=== PATIENT | female | born 1990 | race Caucasian/White ===

== ENCOUNTER 2023-04-19 15:00 | Emergency (ER) | payer OTHER ==
[~2023-04-19] VITALS: Ht 147.3 cm; Wt 46.2 kg
--- OUTSIDE RECORDS SUMMARY | ~2023-04-19 | XMS | Continuity of Care Document ---
Demographics + + + | Address | [address] | | | [place] [address] | + + + | Preferred Language | Unknown | + + + | Marital Status | Never | + + + | Rastafari Affiliation | Unknown | + + + | Race | White | + + + | Ethnic Group | Unknown | + + + Author + + + | Author | [facility] | + + + | Organization | [facility] | + + + | Address | [address] | | | [place] [address] | + + + | Phone | | + + + Care Team Providers + + + + | Care Lean Specialist Name | Role | Phone | + + + + Unavailable | Unavailable | + + + + Allergies No information. Encounters No information. Functional Status No information. Immunizations No information. Medications No information. 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 Results/Labs No information. Social History No information. Vital Signs No information."
--- OUTSIDE RECORDS SUMMARY | ~2023-04-19 | XMS | Continuity of Care Document ---
Demographics + + + | Address | [address] | | | [place] [address] | + + + | Preferred Language | Unknown | + + + | Marital Status | Never | + + + | Taoism Affiliation | Unknown | + + + | Race | White | + + + | Ethnic Group | Unknown | + + + Author + + + | Author | [facility] | + + + | Organization | [facility] | + + + | Address | [address] | | | [place] [address] | + + + | Phone | | + + + Care Team Providers + + + + | Care Director Of Revenue Name | Role | Phone | + [...]
[~2023-04-19 15:00] MED LIST: CYCLOSPORINE25 MG PO; MAGNESIUM CITR296 ML PO; MIRALAX17 GM PO; NORCO 5-325 TA1 EACH PO; VENTOLIN HFA18 GM INH
[2023-04-19 15:22] LABS: BILIRUBIN, URINE NEGATIVE (negative); BLOOD/HGB, URINE NEGATIVE (Negative); KETONE, URINE NEGATIVE (Negative); LEUK ESTERASE, URINE NEGATIVE (negative); NITRITE, URINE NEGATIVE (negative); PH, URINE 5.5 (5-7)
[2023-04-19] MEDS ORDERED: PYRIDIUM200 MG PO (15:38)
[2023-04-19] MEDS ORDERED: CEPHALEXIN500 M1 PO (15:38)
[2023-04-19 15:44] VITALS: BP 129/82
== END 2023-04-19 15:45 | disposition home or self-care (01) ==
LOC: ED 15:00
PROVIDERS: Emergency Medicine
DX: R30.0 Dysuria (principal); R39.15 Urgency of urination; R35.0 Frequency of micturition; Z94.4 Liver transplant status
CPT/HCPCS: 81003; 99283